=== PATIENT | male | born 1990 | race African-American/Black ===

== ENCOUNTER 2016-12-26 04:01 | Emergency (ER) | payer OTHER ==
[~2016-12-26] VITALS: Ht 177.8 cm; Wt 80.3 kg
[2016-12-26 04:03] VITALS: TEMP 36.4; Ht 177.8 cm; Wt 80.3 kg
--- NOTE | 2016-12-26 08:17 | EMERGENCY ROOM VISIT NOTE ---
History Report prepared by Víctor: Libby Nunez Under the Supervision of: Dr. Viky Todd D.O. First contact with patient: 04:05 Chief Complaint: HEAD INJURY (MINOR) Stated Complaint: HEAD INJURY History of Present Illness The patient is a 24 year old male who presents to the Emergency Room with complaints of an episode of a head injury occurring tonight. The patient states he was out with friends and had been drinking. He states he went to [facility], ordered food, and slipped hitting his head on a metal pole. He states someone called 911. The patient states that he does not want anything, he will not answer anymore questions, and he does not want to be touched or have a physical exam. HPI is limited secondary to alcohol intoxication and cooperation. Source of History: patient History Limited By: poor cooperation, intoxication Onset: tonight Position: head Quality: other (bleeding) Timing: other (episode) Review of Systems Pt denies headache, change in vision, fevers, chest pain, shortness of breath, nausea, vomiting, diarrhea, pain with urination, and melena. ROS and EXAM limited secondary to poor cooperation. Past Medical & Surgical Medical Problems: (1) No Known Active Medical Problems Family History No pertinent family history Social History Alcohol Use: occasionally Marital Status: single Housing Status: lives with roommate Occupation Status: [employer] Current/Historical Medications Unable to Obtain Active Prescriptions or Reported Meds Physical Exam Vital Signs Date Time Temp Pulse Resp B/P (MAP) Pulse Ox O2 Delivery O2 Flow Rate FiO2 12/26/16 08:30 78 20 144/89 100 Room Air 12/26/16 06:33 96 18 121/68 98 Room Air 12/26/16 05:19 74 18 97 Room Air 12/26/16 04:03 98 12/26/16 04:03 36.4 109 18 170/115 98 Room Air Physical Exam GENERAL: alert, well appearing, well nourished, no distress, non-toxic HENT: Conjugate gaze. Dressing noted on head placed by EMS. 2 cm vertical laceration to superior left forehead. LUNGS: No cough. No increased work to breathe. HEART: Equal chest rise and fall. UPPER EXTREMITIES: Patient moving UE spontaneously. LOWER EXTREMITIES: Patient moving LE spontaneously. NEURO EXAM: Clear speech. No facial droop. Patient refused to be touched and examined. He states he wants nothing done to him or for him. Medical Decision & Procedures ED Course 0406: The patient was evaluated in room B2. A complete history and physical exam was performed. 0707: I reevaluated the patient and he is sleeping. 0805: I reevaluated tge patient. Patient is clinically sober. He is still refusing treatment. He let me look at the laceration on his head. He is leaving AMA. The discussed the risks associated with this. He verbalized understanding. The patient will be discharged home. Medical Decision Etiologies such as alcohol intoxication, toxicologic, infection, hypoglycemia, electrolyte abnormalities, cardiac sources, intracerebral event, intracranial hemorrhage, neurologic, as well as others were entertained. I discussed with patient at length my concern for his need of a more thorough physical exam as well as imaging given the injury to his head. Patient refused. Patient was clear, answered all questions appropriately, and seemed clinically sober. Discussed with him risks of going home without additional evaluation and he verbalized understanding of this and was willing to accept possibility area patient states he has had prior head injuries as well as prior cuts on his head and has had no complications. Discussed with patient he is welcome to return to the ER at any time, discussed possible consultations and differential diagnosis, he verbalized understanding all this. Patient and related with a steady gait and was tolerating by mouth prior to discharge. Patient refused any evaluation and repair of the laceration noted to his forehead. Bleeding was controlled with a dressing. I have a low suspicion for any additional occult traumatic injury however explant him I was concerned about the possibility of underlying head trauma. Impression Primary Impression: Closed head injury Additional Impression: Facial laceration Scribe Attestation The scribe's documentation has been prepared under my direction and personally reviewed by me in its entirety. I confirm that the note above accurately reflects all work, treatment, procedures, and medical decision making performed by me. Departure Information Dispostion Against Medical Advice Prescriptions Unable to Obtain Active Prescriptions or Reported Meds Forms HOME CARE DOCUMENTATION FORM, IMPORTANT VISIT INFORMATION Patient Instructions My [facility] Additional Instructions You're welcome to return to the ER at any time. By leaving AGAINST MEDICAL ADVICE you're assuming responsibility for your condition and any subsequent complications. With having been drinking alcohol and then sustaining a head injury, we have trauma and his concern for any additional head and brain trauma or additional subsequent trauma to your body. I continuously refusing to let us perform even a physical exam and assess vital signs, we cannot adequately assess for any additional injuries. You have refused to allow us to clean and repair the laceration to your forehead. This may result in subsequent infection and additional scarring compared to a repaired laceration. When you choose to drink alcohol, please do so responsibly and in a safe location. Do not drink and drive. Problem Qualifiers Primary Impression: Closed head injury Encounter type: initial encounter Qualified Codes: S09.90XA - Unspecified injury of head, initial encounter Additional Impression: Facial laceration Encounter type: initial encounter Qualified Codes: S01.81XA - Laceration without foreign body of other part of head, initial encounter
[2016-12-26 08:30] VITALS: BP 144/89; PULSE 78; O2SAT 100
== END 2016-12-26 08:40 | disposition left against medical advice (07) ==
LOC: C.EDB 04:07 → EDBD 04:07 → C.EDB 08:40
DX: S09.90XA Unspecified injury of head, initial encounter (principal); S01.81XA Laceration without foreign body of other part of head, initial encounter; W19.XXXA Unspecified fall, initial encounter